=== PATIENT | female | born 1940 | race Caucasian/White ===

== ENCOUNTER 2017-10-12 21:38 | Inpatient (IN) | payer OTHER ==
[~2017-10-12] VITALS: Ht 165.1 cm; Wt 58.1 kg
[~2017-10-12 21:38] MED LIST: ALEN10TA6 PO; AMIO100T4 PO; APIX2.5T PO; LEVO25TA2 PO; LIP10 PO; VALS80TA2 PO
[2017-10-12 21:45] VITALS: BP_SYST 152
[2017-10-12] MEDS ORDERED: LIDOCAINE 1% 10 MG/ML, 20 ML MDV INJ ONE (22:15)
[2017-10-12 23:12] LABS: BASOPHILS % (AUTO) 0.2 % (0.0-2.0); EOSINOPHILS % (AUTO) 0.2 % (0.0-4.0); HEMOGLOBIN 10.2 g/dL (12.0-16.0); LYMPHOCYTES # (AUTO) 1.1 K/uL (1.0-5.5); LYMPHOCYTES % (AUTO) 9.2 % (20.5-51.5); MEAN CORPUSCULAR HEMOGLOBIN 32 pg (27-31); MEAN CORPUSCULAR HGB CONC 34 % (32-36); MEAN CORPUSCULAR VOLUME 92 fL (79.0-98.0); MONOCYTES # (AUTO) 1.3 K/uL (0.0-1.0); MONOCYTES % (AUTO) 10.5 % (1.7-9.3); NEUTROPHILS # (AUTO) 9.7 K/uL (1.8-7.7); NEUTROPHILS % (AUTO) 79.9 % (40.0-70.0); PLATELET COUNT (AUTO) 246 K/uL (130-430); RED BLOOD CELL COUNT(AUTO) 3.25 MIL/uL (4.2-6.2); RED CELL DISTRIBUTION WIDTH 15.8 % (9.0-15.0); WHITE BLOOD COUNT (AUTO) 12.1 K/uL (4.8-10.8)
[2017-10-12 23:24] LABS: ANION GAP 6 (5-15); CALCIUM 8.3 mg/dL (8.4-11.0); CHLORIDE 104 mmol/L (98-107); CREATININE 0.86 mg/dL (0.55-1.30); GLUCOSE 129 mg/dL (70-99); POTASSIUM 4.1 mmol/L (3.5-5.1); SODIUM SERUM 137 mmol/L (136-145); UREA NITROGEN, BLOOD 19 mg/dL (8-21)
[2017-10-12 23:31] LABS: INR 1.1 (0.8-1.2)
[2017-10-12 23:32] LABS: ALANINE AMINOTRANSFERASE 43 U/L (12-78); ALBUMIN 3.3 g/dL (3.4-4.8); ASPARTATE AMINOTRANSFERASE 39 U/L (10-37); LIPASE 417 U/L (73-393); TOTAL BILIRUBIN 1.5 mg/dL (0.0-1.0)
[2017-10-13] MEDS ORDERED: CARV3.1246 PO (01:33)
[2017-10-13] MEDS ORDERED: ASPI-1155 PO (01:33)
[2017-10-13] MEDS ORDERED: PRED10TA PO (01:44)
[2017-10-13] MEDS ORDERED: FURO-150 PO (01:44)
[2017-10-13] MEDS ORDERED: POTA10TA PO (01:44)
[2017-10-13] MEDS ORDERED: HYDROcodone/ACETAMIN 10-325 MG TAB PO PRN (01:45)
[2017-10-13 02:17] VITALS: BP_SYST 145
[2017-10-13 02:38] LABS: BILIRUBIN,URINE NEGATIVE (NEGATIVE); BLOOD, URINE NEGATIVE (NEGATIVE); CLARITY/URINE CLEAR (CLEAR); COLOR,URINE YELLOW (YELLOW); GLUCOSE,URINE NEGATIVE (NEGATIVE); KETONES,URINE NEGATIVE (NEGATIVE); LEUKOCYTE ESTERASE ,URINE NEGATIVE (NEGATIVE); NITRITE, URINE NEGATIVE (NEGATIVE); PH,URINE 6.5 (5.0-8.0); PROTEIN URINE NEGATIVE (NEGATIVE)
[2017-10-13 06:59] LABS: BASOPHILS % (AUTO) 0.4 % (0.0-2.0); EOSINOPHILS # (AUTO) 0.2 K/uL (0.0-0.4); EOSINOPHILS % (AUTO) 1.7 % (0.0-4.0); HEMATOCRIT 31.8 % (36-48); HEMOGLOBIN 10.5 g/dL (12.0-16.0); LYMPHOCYTES # (AUTO) 1.7 K/uL (1.0-5.5); LYMPHOCYTES % (AUTO) 16.1 % (20.5-51.5); MEAN CORPUSCULAR HEMOGLOBIN 31 pg (27-31); MEAN CORPUSCULAR HGB CONC 33 % (32-36); MEAN CORPUSCULAR VOLUME 93 fL (79.0-98.0); MONOCYTES # (AUTO) 1.2 K/uL (0.0-1.0); MONOCYTES % (AUTO) 10.9 % (1.7-9.3); NEUTROPHILS # (AUTO) 7.5 K/uL (1.8-7.7); NEUTROPHILS % (AUTO) 70.9 % (40.0-70.0); PLATELET COUNT (AUTO) 259 K/uL (130-430); RED CELL DISTRIBUTION WIDTH 16.1 % (9.0-15.0); WHITE BLOOD COUNT (AUTO) 10.6 K/uL (4.8-10.8)
[2017-10-13 07:14] LABS: ANION GAP 9 (5-15); CALCIUM 8.8 mg/dL (8.4-11.0); CHLORIDE 105 mmol/L (98-107); CREATININE 0.86 mg/dL (0.55-1.30); GLUCOSE 94 mg/dL (70-99); SODIUM SERUM 140 mmol/L (136-145); UREA NITROGEN, BLOOD 18 mg/dL (8-21)
[2017-10-13 09:00] VITALS: BP_SYST 131
[2017-10-13] MEDS ORDERED: ASPIRIN 81 MG TAB.CHEW PO SCH (09:00)
[2017-10-13] MEDS ORDERED: POTASSIUM CHLORIDE 10 MEQ TAB.PRT.SR PO SCH (09:00)
[2017-10-13] MEDS ORDERED: PREDNISONE 10 MG TABLET PO SCH (09:00)
[2017-10-13] MEDS ORDERED: CARVEDILOL 3.125 MG TABLET (COREG) PO SCH (09:00)
[2017-10-13] MEDS ORDERED: ATORVASTATIN 10 MG TABLET PO SCH (09:00)
[2017-10-13] MEDS ORDERED: FUROSEMIDE 20 MG TABLET PO SCH (09:00)
[2017-10-13 10:11] VITALS: BP_SYST 131
[2017-10-13 10:34] VITALS: BP_SYST 119
== END 2017-10-13 11:14 | disposition home or self-care (01) | DRG 920 ==
LOC: SED 21:38 → STU 10-13 01:45 → SMU 10-13 09:53
PROVIDERS: ADMIT Family Medicine; ATTEND Family Medicine
PROC: 0HQ7XZZ Repair Abdomen Skin, External Approach (ICD-10-PCS; principal; 2017-10-13)
DX: L76.22 Postprocedural hemorrhage of skin and subcutaneous tissue following other procedure (principal); T81.31XA Disruption of external operation (surgical) wound, not elsewhere classified, initial encounter; E03.9 Hypothyroidism, unspecified; E78.5 Hyperlipidemia, unspecified; I10 Essential (primary) hypertension; Y83.8 Other surgical procedures as the cause of abnormal reaction of the patient, or of later complication, without mention of misadventure at the time of the procedure; I25.10 Atherosclerotic heart disease of native coronary artery without angina pectoris; F41.9 Anxiety disorder, unspecified; M19.90 Unspecified osteoarthritis, unspecified site; I48.0 Paroxysmal atrial fibrillation; M81.0 Age-related osteoporosis without current pathological fracture; Z87.891 Personal history of nicotine dependence; Z90.49 Acquired absence of other specified parts of digestive tract; Z88.8 Allergy status to other drugs, medicaments and biological substances; Y92.89 Other specified places as the place of occurrence of the external cause; Z79.82 Long term (current) use of aspirin; Z79.52 Long term (current) use of systemic steroids
CPT/HCPCS: 36415; 36600; 71045; 80048; 80053; 81003; 82550-TC; 82803-TC; 83690-TC; 83880; 85025; 85610-TC; 85730-TC; 87081; 93005; 94010; 99285; J2001; J7512

== ENCOUNTER 2017-10-29 10:07 | Inpatient (IN) | payer OTHER ==
[~2017-10-29] VITALS: Ht 165.1 cm; Wt 58.1 kg
[~2017-10-29 10:07] MED LIST changes: -ALEN10TA6 PO; -AMIO100T4 PO; -APIX2.5T PO; +ASPI-1155 PO; +CARV3.1246 PO; +FURO-150 PO; -LEVO25TA2 PO; +POTA10TA PO; +PRED10TA PO; -VALS80TA2 PO
[2017-10-29 10:25] VITALS: BP_SYST 94
[2017-10-29 11:04] LABS: BASOPHILS % (AUTO) 0.5 % (0.0-2.0); EOSINOPHILS # (AUTO) 0.4 K/uL (0.0-0.4); EOSINOPHILS % (AUTO) 3.9 % (0.0-4.0); HEMATOCRIT 40.8 % (36-48); HEMOGLOBIN 13.6 g/dL (12.0-16.0); LYMPHOCYTES % (AUTO) 9.7 % (20.5-51.5); MEAN CORPUSCULAR HEMOGLOBIN 31 pg (27-31); MEAN CORPUSCULAR HGB CONC 33 % (32-36); MEAN CORPUSCULAR VOLUME 94 fL (79.0-98.0); MONOCYTES # (AUTO) 0.9 K/uL (0.0-1.0); MONOCYTES % (AUTO) 9.2 % (1.7-9.3); NEUTROPHILS # (AUTO) 7.7 K/uL (1.8-7.7); NEUTROPHILS % (AUTO) 76.7 % (40.0-70.0); PLATELET COUNT (AUTO) 170 K/uL (130-430); RED BLOOD CELL COUNT(AUTO) 4.36 MIL/uL (4.2-6.2)
[2017-10-29 11:23] LABS: ANION GAP 9 (5-15); CHLORIDE 102 mmol/L (98-107); CREATININE 0.91 mg/dL (0.55-1.30); GLUCOSE 106 mg/dL (70-99); POTASSIUM 4.2 mmol/L (3.5-5.1); SODIUM SERUM 136 mmol/L (136-145); UREA NITROGEN, BLOOD 18 mg/dL (8-21)
[2017-10-29 11:31] LABS: ALANINE AMINOTRANSFERASE 49 U/L (12-78); ALBUMIN 3.3 g/dL (3.4-4.8); ASPARTATE AMINOTRANSFERASE 26 U/L (10-37); TOTAL BILIRUBIN 1.2 mg/dL (0.0-1.0)
[2017-10-29 11:43] LABS: INR 1.1 (0.8-1.2)
[2017-10-29] MEDS ORDERED: AMIODARONE HCL 150 MG in D5W 97 ML IV ONE (11:45)
[2017-10-29] MEDS ORDERED: NS 500 ML IV ONE (11:45)
[2017-10-29] MEDS ORDERED: AMIODARONE HCL 900 MG in D5W 482 ML IV ONE (11:45)
[2017-10-29 13:12] LABS: BILIRUBIN,URINE NEGATIVE (NEGATIVE); BLOOD, URINE NEGATIVE (NEGATIVE); CLARITY/URINE CLEAR (CLEAR); COLOR,URINE YELLOW (YELLOW); GLUCOSE,URINE NEGATIVE (NEGATIVE); KETONES,URINE NEGATIVE (NEGATIVE); LEUKOCYTE ESTERASE ,URINE TRACE (NEGATIVE); NITRITE, URINE NEGATIVE (NEGATIVE); PROTEIN URINE NEGATIVE (NEGATIVE); UROBILINOGEN,URINE 0.2 (0.2-1.0)
[2017-10-29 13:31] LABS: BACTERIA,URINE RARE /HPF (None Seen); MUCUS,URINE 1+ /LPF (None Seen); RBC,URINE 0-3 /HPF (0-3); WBC,URINE 0-3 /HPF (0-3)
[2017-10-29 14:01] VITALS: BP_SYST 101
[2017-10-29 14:41] VITALS: BP_SYST 107
[2017-10-29] MEDS ORDERED: AMIODARONE HCL 200 MG TABLET PO ONE (15:00)
[2017-10-29 16:26] VITALS: BP_SYST 97
[2017-10-29 20:00] VITALS: BP_SYST 126
[2017-10-29] MEDS: CARVEDILOL 3.125 MG TABLET (COREG) PO SCH (20:31)
[2017-10-29] MEDS: APIXABAN 2.5 MG TABLET PO SCH (20:33)
[2017-10-29] MEDS ORDERED: AMIODARONE HCL 200 MG TABLET PO SCH (21:00)
[2017-10-30 00:08] VITALS: BP_SYST 94
[2017-10-30 07:03] LABS: ANION GAP 4 (5-15); CALCIUM 8.1 mg/dL (8.4-11.0); CHLORIDE 104 mmol/L (98-107); CREATININE 0.75 mg/dL (0.55-1.30); GLUCOSE 99 mg/dL (70-99); POTASSIUM 3.8 mmol/L (3.5-5.1); SODIUM SERUM 132 mmol/L (136-145); THYROID STIMULATING HORMONE 1.69 uIu/mL (0.34-4.82); UREA NITROGEN, BLOOD 13 mg/dL (8-21)
[2017-10-30] MEDS: CARVEDILOL 3.125 MG TABLET (COREG) PO SCH ×2 (08:57→20:45)
[2017-10-30] MEDS: ATORVASTATIN 10 MG TABLET PO SCH (08:57)
[2017-10-30] MEDS: ASPIRIN 81 MG TAB.CHEW PO SCH (08:58)
[2017-10-30] MEDS: APIXABAN 2.5 MG TABLET PO SCH ×2 (08:58→20:45)
[2017-10-30 09:00] VITALS: BP_SYST 111
[2017-10-30] MEDS: AMIODARONE HCL 200 MG TABLET PO SCH ×2 (09:00→20:44)
[2017-10-30] MEDS ORDERED: SERTRALINE HCL 50 MG TABLET PO ONE (12:00)
[2017-10-30 12:08] VITALS: BP_SYST 114
[2017-10-30] MEDS ORDERED: POLYETHYLENE GLYCOL 3350, 17 GM/ POWD.PACK PO ONE (15:15)
[2017-10-30 16:30] VITALS: BP_SYST 112
[2017-10-30 20:10] VITALS: BP_SYST 137
[2017-10-31 04:00] VITALS: BP_SYST 132
[2017-10-31 07:55] VITALS: BP_SYST 148
[2017-10-31] MEDS: ATORVASTATIN 10 MG TABLET PO SCH (08:29)
[2017-10-31] MEDS: AMIODARONE HCL 200 MG TABLET PO SCH (08:30)
[2017-10-31] MEDS: APIXABAN 2.5 MG TABLET PO SCH (08:31)
[2017-10-31] MEDS: ASPIRIN 81 MG TAB.CHEW PO SCH (08:32)
[2017-10-31] MEDS: CARVEDILOL 3.125 MG TABLET (COREG) PO SCH (08:32)
[2017-10-31] MEDS ORDERED: POLYETHYLENE GLYCOL 3350, 17 GM/ POWD.PACK PO SCH (09:00)
[2017-10-31] MEDS ORDERED: SERTRALINE HCL 50 MG TABLET PO SCH (09:00)
[2017-10-31 10:34] VITALS: BP_SYST 118
== END 2017-10-31 11:35 | disposition home or self-care (01) | DRG 309 ==
LOC: SED 10:07 → STU 13:18
PROVIDERS: ADMIT Internal Medicine Hospice and Palliative Medicine; ATTEND Internal Medicine Hospice and Palliative Medicine
DX: I48.0 Paroxysmal atrial fibrillation (principal); D68.69 Other thrombophilia; I10 Essential (primary) hypertension; F41.9 Anxiety disorder, unspecified; I48.2 Chronic atrial fibrillation; E78.00 Pure hypercholesterolemia, unspecified; F51.04 Psychophysiologic insomnia; F32.9 Major depressive disorder, single episode, unspecified; Z90.49 Acquired absence of other specified parts of digestive tract; Z87.891 Personal history of nicotine dependence; Z88.8 Allergy status to other drugs, medicaments and biological substances; Z91.048 Other nonmedicinal substance allergy status; Z79.899 Other long term (current) drug therapy; Z79.82 Long term (current) use of aspirin; Z98.61 Coronary angioplasty status
CPT/HCPCS: 36415; 71045; 80048; 80053; 81000-TC; 83735-TC; 84443-TC; 84484; 85025; 85610-TC; 85730-TC; 87081; 93005; 96365; 99285; J0282; J7040; J7060

== ENCOUNTER 2018-01-11 10:17 | Outpatient (CLI) | payer OTHER ==
[2018-01-11 11:56] LABS: ALANINE AMINOTRANSFERASE 76 U/L (12-78); ALBUMIN 3.7 g/dL (3.4-4.8); ANION GAP 5 (5-15); ASPARTATE AMINOTRANSFERASE 48 U/L (10-37); CALCIUM 9.2 mg/dL (8.4-11.0); CHLORIDE 104 mmol/L (98-107); CREATININE 0.88 mg/dL (0.55-1.30); FREE T4 (FREE THYROXINE) 0.7 ng/dL (0.6-1.6); GLUCOSE 92 mg/dL (70-99); POTASSIUM 4.6 mmol/L (3.5-5.1); SODIUM SERUM 135 mmol/L (136-145); THYROID STIMULATING HORMONE 2.69 uIu/mL (0.34-4.82); TOTAL BILIRUBIN 0.8 mg/dL (0.0-1.0); UREA NITROGEN, BLOOD 11 mg/dL (8-21)
== END 2018-01-11 19:14 | disposition home or self-care (01) ==
LOC: SLB 10:17
PROVIDERS: ATTEND Internal Medicine Cardiovascular Disease
DX: I11.0 Hypertensive heart disease with heart failure (principal); E03.9 Hypothyroidism, unspecified; E78.5 Hyperlipidemia, unspecified; I48.0 Paroxysmal atrial fibrillation; I50.1 Left ventricular failure, unspecified
CPT/HCPCS: 36415; 80053; 84439; 84443-TC; 93306

== ENCOUNTER 2018-05-10 21:06 | Inpatient (IN) | payer OTHER ==
[~2018-05-10] VITALS: Ht 167.6 cm; Wt 53.5 kg
[2018-05-10 21:11] VITALS: BP_SYST 170
[2018-05-10 22:54] LABS: EOSINOPHILS % (AUTO) 1.3 % (0.0-4.0); HEMATOCRIT 40.1 % (36-48); HEMOGLOBIN 13.5 g/dL (12.0-16.0); LYMPHOCYTES % (AUTO) 8.5 % (20.5-51.5); MEAN CORPUSCULAR HEMOGLOBIN 32 pg (27-31); MEAN CORPUSCULAR HGB CONC 34 % (32-36); MEAN CORPUSCULAR VOLUME 95 fL (79.0-98.0); MONOCYTES % (AUTO) 7.5 % (1.7-9.3); NEUTROPHILS % (AUTO) 81.7 % (40.0-70.0); PLATELET COUNT (AUTO) 140 K/uL (130-430); RED BLOOD CELL COUNT(AUTO) 4.22 MIL/uL (4.2-6.2); RED CELL DISTRIBUTION WIDTH 14.8 % (9.0-15.0)
[2018-05-10 22:55] LABS: BASOPHILS # (AUTO) 0.1 K/uL (0.0-0.2); EOSINOPHILS # (AUTO) 0.1 K/uL (0.0-0.4); LYMPHOCYTES # (AUTO) 0.6 K/uL (1.0-5.5); MONOCYTES # (AUTO) 0.5 K/uL (0.0-1.0); NEUTROPHILS # (AUTO) 5.7 K/uL (1.8-7.7)
[2018-05-10 22:57] LABS: ANION GAP 8 (5-15); CALCIUM 8.8 mg/dL (8.4-11.0); CHLORIDE 101 mmol/L (98-107); CREATININE 1.02 mg/dL (0.55-1.30); GLUCOSE 144 mg/dL (70-99); POTASSIUM 3.8 mmol/L (3.5-5.1); SODIUM SERUM 135 mmol/L (136-145); UREA NITROGEN, BLOOD 18 mg/dL (8-21)
[2018-05-10] MEDS ORDERED: MORPHINE 4 MG/ML INJ. SYRINGE IVP ONE (23:00)
[2018-05-10] MEDS ORDERED: ONDANSETRON HCL 4 MG/2 ML VIAL IVP ONE (23:00)
[2018-05-10 23:06] LABS: ALANINE AMINOTRANSFERASE 385 U/L (12-78); ALBUMIN 3.5 g/dL (3.4-4.8); ASPARTATE AMINOTRANSFERASE 262 U/L (10-37); TOTAL BILIRUBIN 0.7 mg/dL (0.0-1.0)
[2018-05-10 23:50] LABS: BILIRUBIN,URINE NEGATIVE (NEGATIVE); BLOOD, URINE NEGATIVE (NEGATIVE); CLARITY/URINE CLEAR (CLEAR); COLOR,URINE YELLOW (YELLOW); GLUCOSE,URINE NEGATIVE (NEGATIVE); KETONES,URINE NEGATIVE (NEGATIVE); LEUKOCYTE ESTERASE ,URINE TRACE (NEGATIVE); NITRITE, URINE NEGATIVE (NEGATIVE); PROTEIN URINE TRACE (NEGATIVE); UROBILINOGEN,URINE 0.2 (0.2-1.0)
[2018-05-10 23:57] LABS: BACTERIA,URINE FEW /HPF (None Seen); RBC,URINE 0-3 /HPF (0-3)
[2018-05-11] MEDS ORDERED: NACL 0.9% 1,000 ML IV ONE (00:23)
[2018-05-11] MEDS ORDERED: cefTRIAXone 1 GM in D5W 50 ML IV ONE (00:30)
[2018-05-11] MEDS ORDERED: cefTRIAXone 1 GM VIAL ONE (00:55)
[2018-05-11] MEDS ORDERED: cefTRIAXone 1 GM IVPB PREMIX 50 ML IV ONE (00:57)
[2018-05-11] MEDS ORDERED: LIP20 PO (01:01)
[2018-05-11] MEDS ORDERED: APIX2.5T PO (01:03)
[2018-05-11] MEDS ORDERED: AMI200 PO (01:03)
[2018-05-11] MEDS ORDERED: VALS80TA2 PO (01:04)
[2018-05-11] MEDS ORDERED: LEVO25TA7 PO (01:04)
[2018-05-11] MEDS ORDERED: ESCI10TA PO (01:04)
[2018-05-11] MEDS ORDERED: MORPHINE 4 MG/ML INJ. SYRINGE IVP ONE (01:15)
[2018-05-11] MEDS ORDERED: ONDANSETRON HCL 4 MG/2 ML VIAL IVP PRN (01:15)
[2018-05-11] MEDS ORDERED: ACETAMINOPHEN 325 MG TABLET PO PRN (01:15)
[2018-05-11] MEDS ORDERED: MORPHINE 4 MG/ML INJ. SYRINGE IVP PRN (01:15)
[2018-05-11 02:16] VITALS: BP_SYST 116
[2018-05-11 08:06] VITALS: BP_SYST 128
[2018-05-11] MEDS: MORPHINE 4 MG/ML INJ. SYRINGE IVP PRN ×4 (08:11→21:31)
[2018-05-11 11:56] VITALS: BP_SYST 122
[2018-05-11] MEDS ORDERED: LEVOTHYROXINE SODIUM 0.025 MG TABLET PO ONE (12:15)
[2018-05-11] MEDS ORDERED: CITALOPRAM HYDROBROMIDE 20 MG TABLET PO ONE (12:30)
[2018-05-11] MEDS ORDERED: MIDAZOLAM HCL 5 MG/5 ML VIAL IVP ONE (14:15)
[2018-05-11] MEDS ORDERED: fentaNYL CITRATE/PF 100 MCG/2 ML AMP IVP ONE (14:15)
[2018-05-11] MEDS ORDERED: ROCURONIUM BROMIDE 10 MG/ML (ZEMURON) IV ONE (14:15)
[2018-05-11] MEDS ORDERED: SEVOFLURANE 15 MIN GAS INH ONE (14:15)
[2018-05-11] MEDS ORDERED: PROPOFOL 200MG/ 20ML VIAL (DIPRIVAN) IV ONE (14:15)
[2018-05-11] MEDS ORDERED: CEFAZOLIN 1 GM IVPB PREMIX 50 ML IV ONE (14:15)
[2018-05-11] MEDS ORDERED: ONDANSETRON HCL 4 MG/2 ML VIAL IVP ONE (14:15)
[2018-05-11 15:40] VITALS: BP_SYST 116
[2018-05-11 15:42] VITALS: BP_SYST 116
[2018-05-11 20:00] VITALS: BP_SYST 127
[2018-05-11] MEDS ORDERED: CARVEDILOL 3.125 MG TABLET (COREG) PO SCH (21:00)
[2018-05-12 01:38] VITALS: BP_SYST 105
[2018-05-12] MEDS: LEVOTHYROXINE SODIUM 0.025 MG TABLET PO SCH (06:02)
[2018-05-12 06:49] LABS: BASOPHILS % (AUTO) 0.9 % (0.0-2.0); EOSINOPHILS # (AUTO) 0.2 K/uL (0.0-0.4); EOSINOPHILS % (AUTO) 2.7 % (0.0-4.0); HEMATOCRIT 35.4 % (36-48); LYMPHOCYTES # (AUTO) 0.7 K/uL (1.0-5.5); LYMPHOCYTES % (AUTO) 12.5 % (20.5-51.5); MEAN CORPUSCULAR HEMOGLOBIN 32 pg (27-31); MEAN CORPUSCULAR HGB CONC 34 % (32-36); MEAN CORPUSCULAR VOLUME 95 fL (79.0-98.0); MONOCYTES # (AUTO) 0.7 K/uL (0.0-1.0); MONOCYTES % (AUTO) 12.4 % (1.7-9.3); NEUTROPHILS # (AUTO) 4.1 K/uL (1.8-7.7); NEUTROPHILS % (AUTO) 71.5 % (40.0-70.0); PLATELET COUNT (AUTO) 99 K/uL (130-430); RED BLOOD CELL COUNT(AUTO) 3.73 MIL/uL (4.2-6.2); RED CELL DISTRIBUTION WIDTH 15.3 % (9.0-15.0); WHITE BLOOD COUNT (AUTO) 5.7 K/uL (4.8-10.8)
[2018-05-12 06:50] LABS: BASOPHILS # (AUTO) 0.1 K/uL (0.0-0.2)
[2018-05-12 06:53] LABS: INR 1.2 (0.8-1.2)
[2018-05-12 07:21] LABS: ALANINE AMINOTRANSFERASE 329 U/L (12-78); ALBUMIN 2.4 g/dL (3.4-4.8); ANION GAP 4 (5-15); ASPARTATE AMINOTRANSFERASE 172 U/L (10-37); CALCIUM 7.8 mg/dL (8.4-11.0); CHLORIDE 103 mmol/L (98-107); CREATININE 0.77 mg/dL (0.55-1.30); GLUCOSE 97 mg/dL (70-99); POTASSIUM 4.5 mmol/L (3.5-5.1); SODIUM SERUM 132 mmol/L (136-145); TOTAL BILIRUBIN 0.7 mg/dL (0.0-1.0); UREA NITROGEN, BLOOD 14 mg/dL (8-21)
[2018-05-12 08:19] VITALS: BP_SYST 134
[2018-05-12] MEDS: CITALOPRAM HYDROBROMIDE 20 MG TABLET PO SCH (08:21)
[2018-05-12] MEDS ORDERED: ATORVASTATIN 20 MG TABLET PO SCH (09:00)
[2018-05-12] MEDS ORDERED: AMIODARONE HCL 200 MG TABLET PO SCH (09:00)
[2018-05-12 09:58] LABS: TOTAL IRON BIND. CAPACITY 232 ug/dL (250-450)
[2018-05-12 10:02] LABS: ACETAMINOPHEN 2 ug/mL (1-30)
[2018-05-12] MEDS: MORPHINE 4 MG/ML INJ. SYRINGE IVP PRN ×2 (10:24→14:29)
[2018-05-12 11:33] VITALS: BP_SYST 145
[2018-05-12 15:13] VITALS: BP_SYST 130
[2018-05-12 16:34] LABS: HEPATITIS A AB, IgM Negative (Negative); HEPATITIS B CORE AB, IgM Negative (Negative); HEPATITIS B SURFACE AG Negative (Negative)
[2018-05-12 20:00] VITALS: BP_SYST 145
[2018-05-13 00:37] VITALS: BP_SYST 149
[2018-05-13] MEDS: LEVOTHYROXINE SODIUM 0.025 MG TABLET PO SCH (06:28)
[2018-05-13 07:29] LABS: ALANINE AMINOTRANSFERASE 246 U/L (12-78); ALBUMIN 2.4 g/dL (3.4-4.8); ANION GAP 5 (5-15); ASPARTATE AMINOTRANSFERASE 98 U/L (10-37); CHLORIDE 103 mmol/L (98-107); CREATININE 0.65 mg/dL (0.55-1.30); GLUCOSE 106 mg/dL (70-99); SODIUM SERUM 133 mmol/L (136-145); TOTAL BILIRUBIN 0.7 mg/dL (0.0-1.0); UREA NITROGEN, BLOOD 13 mg/dL (8-21)
[2018-05-13 07:33] LABS: HEMATOCRIT 35.6 % (36-48); HEMOGLOBIN 11.9 g/dL (12.0-16.0); MEAN CORPUSCULAR HEMOGLOBIN 32 pg (27-31); MEAN CORPUSCULAR VOLUME 94 fL (79.0-98.0); POTASSIUM 4.5 mmol/L (3.5-5.1); RED BLOOD CELL COUNT(AUTO) 3.77 MIL/uL (4.2-6.2); WHITE BLOOD COUNT (AUTO) 6.2 K/uL (4.8-10.8)
[2018-05-13 07:34] LABS: BASOPHILS # (AUTO) 0.1 K/uL (0.0-0.2); BASOPHILS % (AUTO) 1.1 % (0.0-2.0); EOSINOPHILS # (AUTO) 0.2 K/uL (0.0-0.4); EOSINOPHILS % (AUTO) 2.5 % (0.0-4.0); LYMPHOCYTES # (AUTO) 0.9 K/uL (1.0-5.5); LYMPHOCYTES % (AUTO) 13.7 % (20.5-51.5); MEAN CORPUSCULAR HGB CONC 33 % (32-36); MONOCYTES # (AUTO) 0.8 K/uL (0.0-1.0); MONOCYTES % (AUTO) 12.6 % (1.7-9.3); NEUTROPHILS # (AUTO) 4.4 K/uL (1.8-7.7); NEUTROPHILS % (AUTO) 70.1 % (40.0-70.0); PLATELET COUNT (AUTO) 104 K/uL (130-430); RED CELL DISTRIBUTION WIDTH 15.1 % (9.0-15.0)
[2018-05-13 08:00] VITALS: BP_SYST 157
[2018-05-13] MEDS: CITALOPRAM HYDROBROMIDE 20 MG TABLET PO SCH (08:51)
[2018-05-13 10:07] LABS: HEPATITIS A AB, IgM Negative (Negative); HEPATITIS B CORE AB, IgM Negative (Negative); HEPATITIS B SURFACE AG Negative (Negative)
[2018-05-13 12:52] VITALS: BP_SYST 159
[2018-05-13] MEDS ORDERED: LR 1,000 ML IV SCH (15:01)
[2018-05-13] MEDS ORDERED: MORPHINE 4 MG/ML INJ. SYRINGE IVP PRN ×2 (15:15)
[2018-05-13] MEDS ORDERED: METOCLOPRAMIDE HCL 10 MG/2 ML VIAL IVP PRN (15:15)
[2018-05-13] MEDS ORDERED: MORPHINE 4 MG/ML INJ. SYRINGE ONE (15:55)
[2018-05-13] MEDS ORDERED: METOCLOPRAMIDE HCL 10 MG/2 ML VIAL ONE (16:17)
[2018-05-13 20:00] VITALS: BP_SYST 140
[2018-05-13] MEDS ORDERED: APIXABAN 2.5 MG TABLET PO SCH (21:00)
[2018-05-13] MEDS: MORPHINE 4 MG/ML INJ. SYRINGE IVP PRN (22:02)
[2018-05-13 22:14] VITALS: BP_SYST 136
[2018-05-14 02:06] LABS: ALPHA-1-ANTITRYPSIN, S 145 mg/dL (90-200); CERULOPLASMIN 21.7 mg/dL (19.0-39.0)
[2018-05-14] MEDS: LEVOTHYROXINE SODIUM 0.025 MG TABLET PO SCH (06:00)
[2018-05-14 06:24] LABS: AFP, TUMOR MARKER 2.6 ng/mL (0.0-8.3)
[2018-05-14] MEDS: CITALOPRAM HYDROBROMIDE 20 MG TABLET PO SCH (08:05)
[2018-05-14] MEDS: MORPHINE 4 MG/ML INJ. SYRINGE IVP PRN (08:07)
[2018-05-14 08:25] VITALS: BP_SYST 131
[2018-05-14 11:30] VITALS: BP_SYST 120
[2018-05-14 11:51] VITALS: BP_SYST 120
[2018-05-14 13:37] LABS: FERRITIN 398 ng/mL (15-150)
[2018-05-14 15:55] VITALS: BP_SYST 117
[2018-05-14 20:00] VITALS: BP_SYST 138
[2018-05-14] MEDS: DOCUSATE SODIUM 100 MG CAPSULE PO SCH (20:12)
[2018-05-14] MEDS: APIXABAN 2.5 MG TABLET PO SCH (20:13)
[2018-05-15 00:03] VITALS: BP_SYST 155
[2018-05-15] MEDS: LEVOTHYROXINE SODIUM 0.025 MG TABLET PO SCH (06:20)
[2018-05-15 06:42] LABS: ALBUMIN 2.3 g/dL (3.4-4.8); BILIRUBIN,DIRECT 0.2 mg/dL (0.0-0.3); TOTAL BILIRUBIN 0.7 mg/dL (0.0-1.0)
[2018-05-15 07:54] VITALS: BP_SYST 137
[2018-05-15 08:42] VITALS: BP_SYST 138
[2018-05-15] MEDS: DOCUSATE SODIUM 100 MG CAPSULE PO SCH (08:43)
[2018-05-15] MEDS: CITALOPRAM HYDROBROMIDE 20 MG TABLET PO SCH (08:44)
[2018-05-15] MEDS: APIXABAN 2.5 MG TABLET PO SCH (08:54)
[2018-05-15] MEDS ORDERED: POLYETHYLENE GLYCOL 3350, 17 GM/ POWD.PACK PO SCH (09:00)
[2018-05-15] MEDS ORDERED: NA PHOS,M-B/NA PHOS,DI-BA 118 ML (FLEET ENEMA) RC PRN (11:15)
[2018-05-15] MEDS ORDERED: BISACODYL 10 MG/SUPPOSITORY RC PRN (11:15)
[2018-05-15] MEDS ORDERED: LACTULOSE 20 GM/30 ML UDC PO ONE (11:15)
[2018-05-15] MEDS ORDERED: traMADol HCL HCL 50 MG TABLET (ULTRAM) PO PRN (11:15)
[2018-05-15] MEDS ORDERED: CHOLECALCIFEROL (VITAMIN D3) 2,000 UNIT TABLET PO SCH (12:00)
[2018-05-15] MEDS ORDERED: MULTIVITS,CA,MINERALS/IRON/FA 1 TABLET PO ONE (12:00)
[2018-05-15] MEDS ORDERED: MULTIVITS,CA,MINERALS/IRON/FA 1 TABLET PO SCH (12:00)
[2018-05-15] MEDS ORDERED: CHOLECALCIFEROL (VITAMIN D3) 2,000 UNIT TABLET PO ONE (12:00)
[2018-05-15 12:07] LABS: ANTI NUCLEAR AB WITH REFLEX Negative (Negative)
[2018-05-15 12:39] VITALS: BP_SYST 142
[2018-05-15 16:43] VITALS: BP_SYST 133
[2018-05-15 17:19] VITALS: BP_SYST 127
[2018-05-16] MEDS ORDERED: MULTIVITS,CA,MINERALS/IRON/FA 1 TABLET PO SCH (09:00)
[2018-05-16] MEDS ORDERED: CHOLECALCIFEROL (VITAMIN D3) 2,000 UNIT TABLET PO SCH (09:00)
[2018-05-17 09:14] LABS: LIVER-KIDNEY MICROSOMAL AB 2.1 Units (0.0-20.0)
[2018-05-17 14:32] LABS: ANTI-SMOOTH MUSCLE AB 29 (0-19)
== END 2018-05-15 18:45 | DRG 510 ==
LOC: SED 21:06 → STU 05-11 01:02 → SMU 05-14 17:29
PROVIDERS: ADMIT Internal Medicine; ATTEND Internal Medicine
PROC: 0PSJ34Z Reposition Left Radius with Internal Fixation Device, Percutaneous Approach (ICD-10-PCS; principal; 2018-05-14)
DX: S52.502A Unspecified fracture of the lower end of left radius, initial encounter for closed fracture (principal); E43 Unspecified severe protein-calorie malnutrition; B17.9 Acute viral hepatitis, unspecified; N39.0 Urinary tract infection, site not specified; D68.69 Other thrombophilia; E87.1 Hypo-osmolality and hyponatremia; Z68.1 Body mass index [BMI] 19.9 or less, adult; E03.9 Hypothyroidism, unspecified; E78.00 Pure hypercholesterolemia, unspecified; E78.5 Hyperlipidemia, unspecified; I10 Essential (primary) hypertension; F32.9 Major depressive disorder, single episode, unspecified; F41.9 Anxiety disorder, unspecified; I48.0 Paroxysmal atrial fibrillation; Z79.01 Long term (current) use of anticoagulants; Z79.899 Other long term (current) drug therapy; Z87.891 Personal history of nicotine dependence; Z90.49 Acquired absence of other specified parts of digestive tract; W01.0XXA Fall on same level from slipping, tripping and stumbling without subsequent striking against object, initial encounter; Y93.89 Activity, other specified; Y92.89 Other specified places as the place of occurrence of the external cause; Y99.8 Other external cause status; Z88.8 Allergy status to other drugs, medicaments and biological substances; Z95.1 Presence of aortocoronary bypass graft; Z82.49 Family history of ischemic heart disease and other diseases of the circulatory system
CPT/HCPCS: 36415; 71045; 72170-TC; 74150-TC; 76000; 76700-TC; 80053; 80074; 80076; 81000-TC; 82103; 82105; 82390; 82728; 83516; 83540-TC; 83550-TC; 83605; 84484; 85025; 85610-TC; 86038; 86376; 87040-TC; 87081; 93005; 94010; 94760; 96365; 96375; 96376; 97116-GP; 97530-GP; 99285; C1713; G0378; G0480; G0481; J0690; J0696; J2250; J2270; J2405; J2704; J2765; J3010; J7030

== ENCOUNTER 2020-07-09 14:54 | Inpatient (IN) | payer OTHER, SELFPAY ==
[~2020-07-09] VITALS: Ht 167.6 cm; Wt 69.4 kg
[~2020-07-09 14:54] MED LIST changes: +APIX2.5T PO; -ASPI-1155 PO; -CARV3.1246 PO; +ESCI10TA PO; -FURO-150 PO; +LEVO25TA7 PO; -LIP10 PO; +LIP20 PO; -POTA10TA PO; -PRED10TA PO
[2020-07-09 15:05] VITALS: BP_SYST 169
--- NOTE | 2020-07-09 15:10 | NUR ---
Patient to ER bed 2 to gown for evaluation. Side rails up.
[2020-07-09] MEDS ORDERED: ALBUTEROL SULFATE 0.083% 2.5 MG/3 ML VIAL.NEB INH ONE (15:15)
[2020-07-09] MEDS ORDERED: IPRATROPIUM BROM 0.5 MG/2.5 ML VIAL.NEB (ATROVENT) INH ONE (15:15)
--- NOTE | 2020-07-09 15:15 | NUR ---
[facility] for the past 2 weeks. Pt reports getting SOB upon ambulation. O2 sat is at 97% on RA. school bus monitor placed. AAOX4
--- NOTE | 2020-07-09 15:16 | NUR ---
ekg done and given to
--- NOTE | 2020-07-09 15:22 | NUR ---
ER at bedside examining patient.
--- NOTE | 2020-07-09 15:25 | NUR ---
# 22 gauge angiocath placed to LAC. Use of asceptic technique. Opsite placed over site. Blood return noted. Blood for lab drawn from site. Flushed with 10 cc of normal saline. No evidence of infiltration noted. Patient tolerated well.
--- NOTE | 2020-07-09 15:30 | NUR ---
RT at the bedside
--- NOTE | 2020-07-09 15:45 | NUR ---
ua COLLECTED AND SENT TO lab
[2020-07-09 16:02] LABS: BASOPHILS % (AUTO) 0.1 % (0.0-2.0); HEMATOCRIT 40.7 % (36-48); HEMOGLOBIN 13.6 g/dL (12.0-16.0); LYMPHOCYTES # (AUTO) 1.1 K/uL (1.0-5.5); LYMPHOCYTES % (AUTO) 10.3 % (20.5-51.5); MEAN CORPUSCULAR HEMOGLOBIN 32 pg (27-31); MEAN CORPUSCULAR HGB CONC 33 % (32-36); MEAN CORPUSCULAR VOLUME 97 fL (79.0-98.0); MONOCYTES # (AUTO) 0.4 K/uL (0.0-1.0); MONOCYTES % (AUTO) 3.6 % (1.7-9.3); PLATELET COUNT (AUTO) 145 K/uL (130-430); RED BLOOD CELL COUNT(AUTO) 4.19 MIL/uL (4.2-6.2); RED CELL DISTRIBUTION WIDTH 14.4 % (9.0-15.0); WHITE BLOOD COUNT (AUTO) 10.4 K/uL (4.8-10.8)
[2020-07-09 16:09] LABS: ANION GAP 3 (5-15); CALCIUM 8.7 mg/dL (8.4-11.0); CHLORIDE 103 mmol/L (98-107); CREATININE 1.16 mg/dL (0.55-1.30); GLUCOSE 165 mg/dL (70-99); POTASSIUM 4.9 mmol/L (3.5-5.1); SODIUM SERUM 134 mmol/L (136-145); UREA NITROGEN, BLOOD 28 mg/dL (8-21)
[2020-07-09 16:15] LABS: ALANINE AMINOTRANSFERASE 65 U/L (12-78); ALBUMIN 3.8 g/dL (3.4-4.8); ASPARTATE AMINOTRANSFERASE 56 U/L (10-37); TOTAL BILIRUBIN 0.5 mg/dL (0.0-1.0)
--- NOTE | 2020-07-09 16:58 | NUR ---
COVID rapid swab performed at bedside.
--- NOTE | 2020-07-09 17:10 | NUR ---
Levaquin IV infusing per MD order
[2020-07-09 17:20] LABS: BILIRUBIN,URINE NEGATIVE (NEGATIVE); BLOOD, URINE NEGATIVE (NEGATIVE); CLARITY/URINE CLEAR (CLEAR); COLOR,URINE YELLOW (YELLOW); GLUCOSE,URINE NEGATIVE (NEGATIVE); KETONES,URINE NEGATIVE (NEGATIVE); LEUKOCYTE ESTERASE ,URINE NEGATIVE (NEGATIVE); NITRITE, URINE NEGATIVE (NEGATIVE); PH,URINE 5.5 (5.0-8.0); PROTEIN URINE NEGATIVE (NEGATIVE); UROBILINOGEN,URINE 0.2 (0.2-1.0)
--- NOTE | 2020-07-09 17:22 | NUR ---
Patient will be admitted to care of Dr. Woodard. Admitted to tele unit. Will go to room 103-a. Belongings list completed. Complete and up to date summary report printed. SBAR report to be given at bedside with opportunity for questions. iv LAC patent and infusing well
--- NOTE | 2020-07-09 17:41 | NUR ---
RECEIVED PT FROM LANDON MENDEZ. PT STABLE AT THIS TIME
[2020-07-09 17:49] VITALS: BP_SYST 163
--- NOTE | 2020-07-09 18:00 | NUR ---
PT STATED SHE CAME WITH GLASSES, CALLED ANDREA FROM ER, STATED THAT SHE DOES NOT HAVE IT AT THIS MOMENT BUT WILL TRY LOOKING FOR IT, PT STATED [facility] MAY HAVE TAKEN IT.
--- NOTE | 2020-07-09 18:55 | NUR ---
CLOSING NOTES PT AWAKE, ALERT, AND ORIENTED. NONLABORED BREATHING NOTED, RECEIVING O2 AT 2LPM VIA NASAL CANNULA, TOLERATING WELL. IV LINE INTACT AND PATENT, NO SIGNS OF INFILTRATION NOTED. NO ACUTE DISTRESS NOTED. ALL NEEDS MET. CALL LIGHT IN REACH. FALL AND ASPIRATION PRECAUTIONS IN PLACE. WILL ENDORSE TO [facility] NURSE. Addendum: 07/09/20 at 1904 by Geraldine Ruiz RN will endorse glasses to [facility] nurse
[2020-07-09 19:32] VITALS: BP_SYST 170
--- NOTE | 2020-07-09 19:40 | NUR ---
initial notes: pt is alert, awake, oriented o pain, no pain, no sob, stable vital sing, iv lock to left ac gauge 22- intact and patent. pt blood pressure is high, dr. connor at bed side saw the pt md is aware of high blood pressure. needs attended, khanh light in reach. safety precaution in place. will follow up.
[2020-07-09] MEDS ORDERED: LevALBUTEROL HCL 1.25 MG/0.5 ML *CONC.* VIAL.NEB (XOPENEX CONC.) INH PRN (20:15)
[2020-07-09] MEDS ORDERED: ACETAMINOPHEN 325 MG TABLET PO PRN (20:15)
[2020-07-09 20:57] VITALS: BP_SYST 170
[2020-07-09] MEDS: hydrALAZINE HCL 25 MG TABLET PO SCH (22:11)
[2020-07-09] MEDS: APIXABAN 2.5 MG TABLET PO SCH (22:12)
[2020-07-09] MEDS ORDERED: AZITHROMYCIN 500 MG/VIAL (ZITHROMAX) IV ONE (22:24)
[2020-07-09] MEDS ORDERED: cefTRIAXone 1 GM IVPB PREMIX 50 ML IV ONE (22:24)
[2020-07-09] MEDS: AZITHROMYCIN 500 MG in NS 250 ML IV SCH (22:35)
[2020-07-09] MEDS: cefTRIAXone 1 GM in D5W 50 ML IV SCH (22:35)
[2020-07-09] MEDS: LevALBUTEROL HCL 1.25 MG/0.5 ML *CONC.* VIAL.NEB (XOPENEX CONC.) INH SCH (23:51)
[2020-07-10] VITALS (7 sets, daily range): BP systolic 117–157
--- NOTE | 2020-07-10 | NUR ---
sleeping, no sob, no pain, not distress, wakes up and ambulate to bathroom, steady gait. back to bed, needs attended, call light in reach.
[2020-07-10] MEDS: hydrALAZINE HCL 25 MG TABLET PO SCH ×3 (06:14→22:34)
[2020-07-10] MEDS: LEVOTHYROXINE SODIUM 0.025 MG TABLET PO SCH (06:14)
[2020-07-10 06:40] LABS: BASOPHILS % (AUTO) 0.1 % (0.0-2.0); EOSINOPHILS % (AUTO) 0.1 % (0.0-4.0); HEMATOCRIT 36.5 % (36-48); HEMOGLOBIN 12.3 g/dL (12.0-16.0); LYMPHOCYTES # (AUTO) 1.4 K/uL (1.0-5.5); LYMPHOCYTES % (AUTO) 16.3 % (20.5-51.5); MEAN CORPUSCULAR HEMOGLOBIN 32 pg (27-31); MEAN CORPUSCULAR HGB CONC 34 % (32-36); MEAN CORPUSCULAR VOLUME 96 fL (79.0-98.0); MONOCYTES # (AUTO) 0.9 K/uL (0.0-1.0); MONOCYTES % (AUTO) 10.7 % (1.7-9.3); NEUTROPHILS # (AUTO) 6.3 K/uL (1.8-7.7); NEUTROPHILS % (AUTO) 72.8 % (40.0-70.0); PLATELET COUNT (AUTO) 126 K/uL (130-430); RED BLOOD CELL COUNT(AUTO) 3.81 MIL/uL (4.2-6.2); RED CELL DISTRIBUTION WIDTH 14.5 % (9.0-15.0); WHITE BLOOD COUNT (AUTO) 8.7 K/uL (4.8-10.8)
[2020-07-10 06:48] LABS: ANION GAP 5 (5-15); CALCIUM 8.3 mg/dL (8.4-11.0); CHLORIDE 104 mmol/L (98-107); CREATININE 0.93 mg/dL (0.55-1.30); GLUCOSE 91 mg/dL (70-99); POTASSIUM 4.2 mmol/L (3.5-5.1); SODIUM SERUM 137 mmol/L (136-145); UREA NITROGEN, BLOOD 21 mg/dL (8-21)
[2020-07-10] MEDS: LevALBUTEROL HCL 1.25 MG/0.5 ML *CONC.* VIAL.NEB (XOPENEX CONC.) INH SCH ×3 (07:21→22:52)
--- NOTE | 2020-07-10 07:27 | NUR ---
closing: pt is awake, alert, no sob, no pain. not distress, iv lock to left ac- intact and patent. brp with steady gait. needs attended the whole shift. sbar reporting given to am rn.
[2020-07-10] MEDS: APIXABAN 2.5 MG TABLET PO SCH ×2 (08:32→20:04)
[2020-07-10] MEDS: ATORVASTATIN 20 MG TABLET PO SCH (08:32)
[2020-07-10] MEDS: CITALOPRAM HYDROBROMIDE 20 MG TABLET PO SCH (08:32)
[2020-07-10] MEDS ORDERED: ESCITALOPRAM OXALATE 10 MG TABLET PO SCH (09:00)
--- NOTE | 2020-07-10 09:00 | NUR ---
Ambulate to bathroom with steady gait on room air no shortness of breath.
--- NOTE | 2020-07-10 15:00 | NUR ---
PATIENT RESTING: Patient resting quietly. No acute distress noted.
--- NOTE | 2020-07-10 19:55 | NUR ---
OPENING NOTES Received report from LANDON Tuttle. Patient resting in bed, AAOx4, breathing evenly and nonlabored on 2L of oxygen via NC. Patient has an IV on the left AC saline locked. Educated patient on plan of care, fall/safety precautions, call light system, patient stated understanding with return demonstration. Bed is locked, and at lowest position, will continue to monitor.
[2020-07-10] MEDS: cefTRIAXone 1 GM in D5W 50 ML IV SCH (20:03)
--- NOTE | 2020-07-10 20:05 | NUR ---
IV RE-INSERTION: Complaining of pain to IV site. IV on left AC 22g infiltrated, discontinued, IV catheter intact, patient tolerated it well. Restarted on left forearm 22g. Successful after 1 attempt. Started first IVPB antibiotic due. Will observe for any signs of infiltration.
[2020-07-10] MEDS: AZITHROMYCIN 500 MG in NS 250 ML IV SCH (21:03)
[2020-07-11 00:10] VITALS: BP_SYST 130
[2020-07-11] MEDS: LEVOTHYROXINE SODIUM 0.025 MG TABLET PO SCH (06:11)
[2020-07-11] MEDS: hydrALAZINE HCL 25 MG TABLET PO SCH (06:11)
[2020-07-11 06:31] LABS: BASOPHILS % (AUTO) 0.2 % (0.0-2.0); EOSINOPHILS # (AUTO) 0.1 K/uL (0.0-0.4); EOSINOPHILS % (AUTO) 2.4 % (0.0-4.0); HEMOGLOBIN 12.7 g/dL (12.0-16.0); LYMPHOCYTES # (AUTO) 1.5 K/uL (1.0-5.5); LYMPHOCYTES % (AUTO) 24.2 % (20.5-51.5); MEAN CORPUSCULAR HEMOGLOBIN 32 pg (27-31); MEAN CORPUSCULAR HGB CONC 33 % (32-36); MEAN CORPUSCULAR VOLUME 96 fL (79.0-98.0); MONOCYTES # (AUTO) 0.7 K/uL (0.0-1.0); MONOCYTES % (AUTO) 10.9 % (1.7-9.3); NEUTROPHILS # (AUTO) 3.9 K/uL (1.8-7.7); NEUTROPHILS % (AUTO) 62.3 % (40.0-70.0); PLATELET COUNT (AUTO) 128 K/uL (130-430); RED BLOOD CELL COUNT(AUTO) 3.95 MIL/uL (4.2-6.2); RED CELL DISTRIBUTION WIDTH 14.5 % (9.0-15.0); WHITE BLOOD COUNT (AUTO) 6.3 K/uL (4.8-10.8)
[2020-07-11] MEDS: LevALBUTEROL HCL 1.25 MG/0.5 ML *CONC.* VIAL.NEB (XOPENEX CONC.) INH SCH (07:04)
--- NOTE | 2020-07-11 08:30 | NUR ---
MD Rounds Seen and examined by Dr. Benedict, ambulates with steady gait oxygen saturation 94% feeling better as verbalized , wants to go home, Md spoke to son Narciso regarding progress and discharge order both agreeable with the care of plan.
[2020-07-11 08:45] LABS: ALANINE AMINOTRANSFERASE 89 U/L (12-78); ALBUMIN 3.1 g/dL (3.4-4.8); ANION GAP 7 (5-15); ASPARTATE AMINOTRANSFERASE 63 U/L (10-37); CALCIUM 8.2 mg/dL (8.4-11.0); CHLORIDE 104 mmol/L (98-107); CREATININE 0.93 mg/dL (0.55-1.30); GLUCOSE 85 mg/dL (70-99); POTASSIUM 4.1 mmol/L (3.5-5.1); SODIUM SERUM 137 mmol/L (136-145); TOTAL BILIRUBIN 0.5 mg/dL (0.0-1.0); UREA NITROGEN, BLOOD 19 mg/dL (8-21)
[2020-07-11 08:49] VITALS: BP_SYST 118
[2020-07-11] MEDS: ATORVASTATIN 20 MG TABLET PO SCH (08:53)
[2020-07-11] MEDS: CITALOPRAM HYDROBROMIDE 20 MG TABLET PO SCH (08:53)
[2020-07-11] MEDS: APIXABAN 2.5 MG TABLET PO SCH (08:54)
[2020-07-11 09:27] VITALS: BP_SYST 118
[2020-07-11] MEDS ORDERED: HYDR-4038 PO (09:36)
[2020-07-11] MEDS ORDERED: Cefdinir PO (09:37)
[2020-07-11] MEDS ORDERED: GUAI100S14 PO (09:37)
--- NOTE | 2020-07-11 10:02 | NUR ---
LATE ENTRY DCP Notes: ACCESS CONTROL SPECIALIST introduced self at patients bedside as she was sitting upright, alert and orientendX4. Patient was calm, maintained eye contact and answered each question easily. Patient was able to confirm information on the facesheet, resides at [facility] for the past 4 years and named her grandson her emergency contact as well as her DPOA. When asked patient stated she is an independent walker and does not require any assistance. Patient stated she does not use any DMEs at her home. ACCESS CONTROL SPECIALIST noticed patient was using oxygen and patient stated that is new and she does not know if the DrCecil will have her continue once she is home. It is patients goal to return to [facility] upon discharge.
--- NOTE | 2020-07-11 10:20 | NUR ---
D/C Patient Patient given medication reconciliation form and D/C instructions. Exit Care provided. Patient verbalized understanding. MD discussed with patient the results and treatment provided. Ambulatory with steady gait for discharge to home. Patient in stable condition, ID band removed. IV catheter removed, intact and dressing applied, no active bleeding. Rx of Hydralazine, Cefdinir and Robitussing syrup given. Patient educated on medication. All belongings sent with patient.
--- NOTE | 2020-07-11 11:30 | NUR ---
Discharged home accompanied by the grandson with all the belongings . , discharge instruction taken home.
[2020-07-22] MEDS ORDERED: CARV3.1246 PO (21:34)
[2020-07-22] MEDS ORDERED: GUAI600T45 PO (21:34)
[2020-07-22] MEDS ORDERED: AMIO100T4 PO (21:34)
[2020-07-22] MEDS ORDERED: BIOT10004 PO (21:34)
[2020-07-22] MEDS ORDERED: MULT1TAB64 PO (21:34)
[2020-07-22] MEDS ORDERED: CALC-939 PO (21:34)
[2020-07-22] MEDS ORDERED: VALS160T29 PO (21:34)
[2020-07-22] MEDS ORDERED: ACET-2634 PO (21:34)
[2020-07-22] MEDS ORDERED: MELA3TAB41 PO (21:34)
[2020-07-22] MEDS ORDERED: CHOL100038 PO (21:34)
== END 2020-07-11 11:30 | disposition home or self-care (01) | DRG 194 ==
LOC: SED 14:54 → STU 17:05
PROVIDERS: ADMIT Family Medicine; ATTEND Family Medicine
DX: J18.9 Pneumonia, unspecified organism (principal); E87.2 Acidosis; E03.9 Hypothyroidism, unspecified; I10 Essential (primary) hypertension; I25.10 Atherosclerotic heart disease of native coronary artery without angina pectoris; I48.91 Unspecified atrial fibrillation; Z20.822 Contact with and (suspected) exposure to COVID-19; F32.9 Major depressive disorder, single episode, unspecified; E78.5 Hyperlipidemia, unspecified; Z95.1 Presence of aortocoronary bypass graft; Z88.8 Allergy status to other drugs, medicaments and biological substances; Z79.899 Other long term (current) drug therapy; Z91.048 Other nonmedicinal substance allergy status
CPT/HCPCS: 36415; 36600; 71045; 80048; 80053; 81003; 82803-TC; 83605; 83880; 84484; 85025; 87040-TC; 93005; 93306; 94640; 94760; 96365; 99285; G0378; J0456; J0696; J1956; J7050; J7060; J7612; J7613

== ENCOUNTER 2020-12-01 19:59 | Inpatient (IN) | payer OTHER, SELFPAY ==
[~2020-12-01] VITALS: Ht 167.6 cm; Wt 71.7 kg
[~2020-12-01 19:59] MED LIST changes: +ACET-2634 PO; +AMIO200T5 PO; +BIOT10004 PO; +CALC-939 PO; +CHOL100038 PO; +MELA3TAB41 PO; +MULT1TAB64 PO; +PRED20TA PO; +VALS160T29 PO
[2020-12-01 20:05] VITALS: BP_SYST 164
[2020-12-01] MEDS ORDERED: FLUT1BLS10 (20:33)
[2020-12-01] MEDS ORDERED: VALS160T2 PO (20:33)
[2020-12-01] MEDS ORDERED: MULT-1200 PO (20:33)
[2020-12-01] MEDS ORDERED: CARV3.1246 PO (20:33)
[2020-12-01] MEDS ORDERED: FUROSEMIDE 40 MG/4 ML VIAL IVP ONE (21:30)
[2020-12-01] MEDS ORDERED: NITROGLYCERIN 1 INCH (GM) OINT. TD ONE (21:30)
[2020-12-01 22:28] LABS: BASOPHILS % (AUTO) 0.1 % (0.0-2.0); HEMATOCRIT 35.7 % (36-48); LYMPHOCYTES # (AUTO) 0.7 K/uL (1.0-5.5); LYMPHOCYTES % (AUTO) 7.5 % (20.5-51.5); MEAN CORPUSCULAR HEMOGLOBIN 32 pg (27-31); MEAN CORPUSCULAR HGB CONC 34 % (32-36); MEAN CORPUSCULAR VOLUME 95 fL (79.0-98.0); MONOCYTES # (AUTO) 0.8 K/uL (0.0-1.0); MONOCYTES % (AUTO) 8.2 % (1.7-9.3); NEUTROPHILS # (AUTO) 8.2 K/uL (1.8-7.7); NEUTROPHILS % (AUTO) 84.2 % (40.0-70.0); PLATELET COUNT (AUTO) 142 K/uL (130-430); RED BLOOD CELL COUNT(AUTO) 3.77 MIL/uL (4.2-6.2); RED CELL DISTRIBUTION WIDTH 16.9 % (9.0-15.0); WHITE BLOOD COUNT (AUTO) 9.8 K/uL (4.8-10.8)
[2020-12-01 22:42] LABS: ANION GAP 6 (5-15); CHLORIDE 95 mmol/L (98-107); CREATININE 1.07 mg/dL (0.55-1.30); GLUCOSE 123 mg/dL (70-99); SODIUM SERUM 134 mmol/L (136-145); UREA NITROGEN, BLOOD 20 mg/dL (8-21)
[2020-12-01 22:46] LABS: PROTHROMBIN TIME 10.5 SECS (9.5-12.5)
[2020-12-01 22:47] LABS: ALANINE AMINOTRANSFERASE 42 U/L (12-78); ALBUMIN 3.5 g/dL (3.4-4.8); ASPARTATE AMINOTRANSFERASE 32 U/L (10-37); TOTAL BILIRUBIN 0.6 mg/dL (0.0-1.0)
[2020-12-02 02:14] VITALS: BP_SYST 148
[2020-12-02 02:20] VITALS: BP_SYST 146
[2020-12-02 08:00] VITALS: BP_SYST 142
[2020-12-02] MEDS: LevALBUTEROL HCL 1.25 MG/0.5 ML *CONC.* VIAL.NEB (XOPENEX CONC.) INH SCH ×3 (08:17→19:21)
[2020-12-02 12:00] VITALS: BP_SYST 132
[2020-12-02] MEDS ORDERED: AMIODARONE HCL 200 MG TABLET PO ONE (14:30)
[2020-12-02] MEDS ORDERED: ACETAMINOPHEN 500 MG TABLET PO PRN (14:30)
[2020-12-02 16:00] VITALS: BP_SYST 118
[2020-12-02] MEDS: BUDESONIDE 0.5 MG/2 ML AMPUL.NEB INH SCH (19:20)
[2020-12-02] MEDS: MELATONIN 3 MG TABLET PO SCH (21:30)
[2020-12-02] MEDS: APIXABAN 2.5 MG TABLET PO SCH (21:30)
[2020-12-02] MEDS: CARVEDILOL 3.125 MG TABLET (COREG) PO SCH (21:30)
[2020-12-03] MEDS: LevALBUTEROL HCL 1.25 MG/0.5 ML *CONC.* VIAL.NEB (XOPENEX CONC.) INH SCH ×4 (00:20→20:48)
[2020-12-03 00:44] VITALS: BP_SYST 120
[2020-12-03 07:36] VITALS: BP_SYST 121
[2020-12-03] MEDS: BUDESONIDE 0.5 MG/2 ML AMPUL.NEB INH SCH ×2 (07:56→20:47)
[2020-12-03 08:00] VITALS: BP_SYST 123
[2020-12-03] MEDS: LEVOTHYROXINE SODIUM 0.025 MG TABLET PO SCH (09:00)
[2020-12-03] MEDS: MULTIVITAMIN/IRON/FOLIC ACID 1 TAB TABLET PO SCH (09:00)
[2020-12-03] MEDS ORDERED: NON-FORMULARY MEDICATION (Biotin 1 TAB) PO SCH (09:00)
[2020-12-03] MEDS: CALCIUM CARBONATE/VITAMIN D3 1 TAB TABLET PO SCH (09:00)
[2020-12-03] MEDS: LOSARTAN POTASSIUM 50 MG TABLET (COZAAR) PO SCH (09:47)
[2020-12-03] MEDS: ATORVASTATIN 20 MG TABLET PO SCH (09:48)
[2020-12-03] MEDS: AMIODARONE HCL 200 MG TABLET PO SCH (09:53)
[2020-12-03] MEDS: CITALOPRAM HYDROBROMIDE 20 MG TABLET PO SCH (09:54)
[2020-12-03] MEDS: CARVEDILOL 3.125 MG TABLET (COREG) PO SCH ×2 (09:54→21:35)
[2020-12-03] MEDS: APIXABAN 2.5 MG TABLET PO SCH ×2 (10:01→22:01)
[2020-12-03 11:26] VITALS: BP_SYST 116
[2020-12-03 15:50] VITALS: BP_SYST 118
[2020-12-03 20:00] VITALS: BP_SYST 107
[2020-12-03] MEDS: MELATONIN 3 MG TABLET PO SCH (21:00)
[2020-12-04] VITALS: BP_SYST 109
[2020-12-04] MEDS: LevALBUTEROL HCL 1.25 MG/0.5 ML *CONC.* VIAL.NEB (XOPENEX CONC.) INH SCH ×2 (07:17→13:14)
[2020-12-04] MEDS: BUDESONIDE 0.5 MG/2 ML AMPUL.NEB INH SCH (07:18)
[2020-12-04 08:00] VITALS: BP_SYST 129
[2020-12-04] MEDS: MULTIVITAMIN/IRON/FOLIC ACID 1 TAB TABLET PO SCH (09:00)
[2020-12-04] MEDS: CITALOPRAM HYDROBROMIDE 20 MG TABLET PO SCH (09:18)
[2020-12-04] MEDS: ATORVASTATIN 20 MG TABLET PO SCH (09:20)
[2020-12-04] MEDS: LOSARTAN POTASSIUM 50 MG TABLET (COZAAR) PO SCH (09:20)
[2020-12-04] MEDS: LEVOTHYROXINE SODIUM 0.025 MG TABLET PO SCH (09:21)
[2020-12-04] MEDS: AMIODARONE HCL 200 MG TABLET PO SCH (09:22)
[2020-12-04] MEDS: CALCIUM CARBONATE/VITAMIN D3 1 TAB TABLET PO SCH (09:23)
[2020-12-04] MEDS: APIXABAN 2.5 MG TABLET PO SCH ×2 (09:26→22:37)
[2020-12-04] MEDS: CARVEDILOL 3.125 MG TABLET (COREG) PO SCH ×2 (09:33→22:35)
[2020-12-04 12:00] VITALS: BP_SYST 114
[2020-12-04 14:53] LABS: BILIRUBIN,URINE NEGATIVE (NEGATIVE); BLOOD, URINE NEGATIVE (NEGATIVE); COLOR,URINE YELLOW (YELLOW); GLUCOSE,URINE NEGATIVE (NEGATIVE); KETONES,URINE TRACE (NEGATIVE); LEUKOCYTE ESTERASE ,URINE TRACE (NEGATIVE); NITRITE, URINE NEGATIVE (NEGATIVE); PROTEIN URINE NEGATIVE (NEGATIVE); UROBILINOGEN,URINE 0.2 (0.2-1.0)
[2020-12-04 14:55] LABS: CLARITY/URINE SLIGHTLY HAZY (CLEAR)
[2020-12-04 15:00] LABS: BACTERIA,URINE FEW /HPF (None Seen); MUCUS,URINE 1+ /LPF (None Seen); RBC,URINE NONE SEEN /HPF (0-3)
[2020-12-04 16:00] VITALS: BP_SYST 116
[2020-12-04 20:00] VITALS: BP_SYST 131
[2020-12-04] MEDS: MELATONIN 3 MG TABLET PO SCH (22:31)
[2020-12-05 01:23] VITALS: BP_SYST 141
[2020-12-05] MEDS: BUDESONIDE 0.5 MG/2 ML AMPUL.NEB INH SCH ×2 (07:59→19:00)
[2020-12-05] MEDS: LevALBUTEROL HCL 1.25 MG/0.5 ML *CONC.* VIAL.NEB (XOPENEX CONC.) INH SCH ×3 (07:59→19:00)
[2020-12-05 08:00] VITALS: BP_SYST 107
[2020-12-05] MEDS: CALCIUM CARBONATE/VITAMIN D3 1 TAB TABLET PO SCH (09:08)
[2020-12-05] MEDS: LOSARTAN POTASSIUM 50 MG TABLET (COZAAR) PO SCH (09:08)
[2020-12-05] MEDS: MEGESTROL ACETATE 400 MG/10 ML UDC PO SCH ×2 (09:11→21:34)
[2020-12-05] MEDS: APIXABAN 2.5 MG TABLET PO SCH ×2 (09:11→21:35)
[2020-12-05] MEDS: ATORVASTATIN 20 MG TABLET PO SCH (09:11)
[2020-12-05] MEDS: CARVEDILOL 3.125 MG TABLET (COREG) PO SCH ×2 (09:12→21:34)
[2020-12-05] MEDS: AMIODARONE HCL 200 MG TABLET PO SCH (09:12)
[2020-12-05] MEDS: CITALOPRAM HYDROBROMIDE 20 MG TABLET PO SCH (09:12)
[2020-12-05] MEDS: LEVOTHYROXINE SODIUM 0.025 MG TABLET PO SCH (09:12)
[2020-12-05] MEDS ORDERED: MULTIVITS,CA,MINERALS/IRON/FA 1 TABLET PO SCH (11:13)
[2020-12-05 12:30] VITALS: BP_SYST 117
[2020-12-05 16:37] VITALS: BP_SYST 114
[2020-12-05 20:00] VITALS: BP_SYST 147
[2020-12-05] MEDS: MELATONIN 3 MG TABLET PO SCH (21:35)
[2020-12-06] VITALS (7 sets, daily range): BP systolic 115–139
[2020-12-06] MEDS: LevALBUTEROL HCL 1.25 MG/0.5 ML *CONC.* VIAL.NEB (XOPENEX CONC.) INH SCH ×3 (01:00→13:00)
[2020-12-06] MEDS: BUDESONIDE 0.5 MG/2 ML AMPUL.NEB INH SCH (07:22)
[2020-12-06] MEDS: LEVOTHYROXINE SODIUM 0.025 MG TABLET PO SCH (09:40)
[2020-12-06] MEDS: MEGESTROL ACETATE 400 MG/10 ML UDC PO SCH (09:40)
[2020-12-06] MEDS: CARVEDILOL 3.125 MG TABLET (COREG) PO SCH (09:40)
[2020-12-06] MEDS: ATORVASTATIN 20 MG TABLET PO SCH (09:41)
[2020-12-06] MEDS: AMIODARONE HCL 200 MG TABLET PO SCH (09:41)
[2020-12-06] MEDS: CITALOPRAM HYDROBROMIDE 20 MG TABLET PO SCH (09:41)
[2020-12-06] MEDS: LOSARTAN POTASSIUM 50 MG TABLET (COZAAR) PO SCH (09:42)
[2020-12-06] MEDS: CALCIUM CARBONATE/VITAMIN D3 1 TAB TABLET PO SCH (09:42)
[2020-12-06] MEDS: APIXABAN 2.5 MG TABLET PO SCH (09:44)
== END 2020-12-06 17:10 | disposition home or self-care (01) | DRG 191 ==
LOC: SED 19:59 → STU 12-02 00:36 → SMU 12-04 10:32
PROVIDERS: ADMIT Family Medicine; ATTEND Family Medicine
DX: J44.1 Chronic obstructive pulmonary disease with (acute) exacerbation (principal); C34.90 Malignant neoplasm of unspecified part of unspecified bronchus or lung; D68.59 Other primary thrombophilia; E78.00 Pure hypercholesterolemia, unspecified; I10 Essential (primary) hypertension; E03.9 Hypothyroidism, unspecified; F03.90 Unspecified dementia, unspecified severity, without behavioral disturbance, psychotic disturbance, mood disturbance, and anxiety; Z20.822 Contact with and (suspected) exposure to COVID-19; I25.10 Atherosclerotic heart disease of native coronary artery without angina pectoris; F41.9 Anxiety disorder, unspecified; I48.0 Paroxysmal atrial fibrillation; Z87.891 Personal history of nicotine dependence; Z95.1 Presence of aortocoronary bypass graft; Z88.8 Allergy status to other drugs, medicaments and biological substances; Z91.048 Other nonmedicinal substance allergy status; Z79.899 Other long term (current) drug therapy; Z90.49 Acquired absence of other specified parts of digestive tract
CPT/HCPCS: 36415; 71045; 80053; 81000; 83880; 84484; 85025; 85610-TC; 85730-TC; 87086; 93005; 94640; 94760; 96374; 97110-GP; 97116-GP; 97530-GP; 99291; G0378; J1940; J7612; J7626